=== PATIENT | male | born 1945 | race Caucasian/White ===

== ENCOUNTER 2021-03-28 16:59 | Emergency (ER) | payer OTHER ==
[2021-03-28 17:14] VITALS: TEMP 98.9
[2021-03-28] MEDS ORDERED: SODIUM CHLORIDE 1,000 ML IV STA (18:14)
[2021-03-28 18:38] LABS: EPI CELLS 4 /uL (0-25.1); HYALINE CASTS 5 /uL (0-3.1); URINE APPEARANCE TURBID; URINE BILIRUBIN 1+ (NEGATIVE); URINE COLOR RED; URINE GLUCOSE (UA) NEGATIVE (NEGATIVE); URINE KETONE NEGATIVE (NEGATIVE); URINE LEUK ESTERASE 3+ (NEGATIVE); URINE NITRITE POSITIVE (NEGATIVE); URINE PROTEIN 3+ (NEGATIVE); URINE UROBILINOGEN 0.2 mg/dL (0.2-1.0); URINE WBC 700 /uL (0-25.8)
[2021-03-28 18:48] LABS: URINE RBC 6794.3 /uL (0-23.9)
[2021-03-28] MEDS ORDERED: CEFTRIAXONE 1 GM in DEXTROSE 5%-WATER - 100 ML IVPB ONE (18:49)
[2021-03-28] MEDS ORDERED: ACETAMINOPHEN 1000 MG/100 ML VIAL (NON FORMULARY) IVPB ONE (18:55)
[2021-03-28 18:57] LABS: YEAST NONE SEEN (NEGATIVE)
[2021-03-28 18:57] LABS: BASO % 0.7 % (0-2.0); EOS % 1.1 % (0-4.5); HEMATOCRIT 40.7 % (35.4-49); HEMOGLOBIN 13.7 GM/dL (11.7-16.9); MCH 30.8 pg (25.7-33.7); MCHC 33.7 g/dl (32.0-35.9); MEAN CELL VOLUME 91.5 fl (80-96); MEAN PLT VOLUME 7.3 fl (7.5-11.1); MONO % 9.4 % (3.8-10.2); NEUT % 78.8 % (42.8-82.8); PLATELET COUNT 222 10^3/uL (134-434); RBC 4.45 M/mm3 (4.00-5.60); RDW 13.9 % (11.9-15.9)
[2021-03-28] MEDS ORDERED: ACETAMINOPHEN INJECTION 100 ML IVPB ONE (18:57)
[2021-03-28] MEDS ORDERED: CEFTRIAXONE 1 GM/50 ML BAG ONE (18:57)
[2021-03-28 19:07] LABS: INR 1.11 (0.83-1.09); PROTHROMBIN TIME (PATIENT) 13.4 SEC (9.7-13.0)
[2021-03-28 19:09] LABS: ACTIVATED PTT 28.1 SECONDS (25.2-36.5)
[2021-03-28 19:26] LABS: CALCIUM 9.1 mg/dL (8.5-10.1)
[2021-03-28 19:27] LABS: ALBUMIN 4.1 g/dl (3.4-5.0); BLOOD UREA NITROGEN 11.6 mg/dL (7-18)
[2021-03-28 19:30] LABS: CREATININE 0.8 mg/dL (0.55-1.3)
[2021-03-28 19:31] LABS: TOT PROT 7.2 g/dl (6.4-8.2)
[2021-03-28 20:33] LABS: BILIRUBIN,TOTAL 0.5 mg/dL (0.2-1)
[2021-03-28 21:07] VITALS: BMI 25.7
[2021-03-28 21:54] VITALS: BP 124/80; PULSE 84
== END 2021-03-28 21:45 | disposition home or self-care (01) ==
LOC: JER 16:59
PROC: 3E0333Z Introduction of Anti-inflammatory into Peripheral Vein, Percutaneous Approach (ICD-10-PCS; principal; 2021-03-28)
PROC: 3E03329 Introduction of Other Anti-infective into Peripheral Vein, Percutaneous Approach (ICD-10-PCS; 2021-03-28)
PROC: 3E0337Z Introduction of Electrolytic and Water Balance Substance into Peripheral Vein, Percutaneous Approach (ICD-10-PCS; 2021-03-28)
DX: R31.9 Hematuria, unspecified (principal)
CPT/HCPCS: 36415; 80053; 81003; 85025; 85610; 85730; 86900; 87086; 87186; 99284-25; J0131